=== PATIENT | female | born 1965 | race Native Hawaiian/Other Pacific Islander ===

== ENCOUNTER 2016-07-06 08:41 | Emergency (ER) | payer BC ==
[~2016-07-06] VITALS: Ht 172.7 cm; Wt 58.5 kg
[2016-07-06 10:05] LABS: PLATELET COUNT 257 K/uL (152-353)
[2016-07-06 10:15] LABS: POTASSIUM 3.6 mmol/L (3.6-5.2); SODIUM 133 mmol/L (136-145)
[2016-07-06 10:58] VITALS: BP 147/78; TEMP 98.1
== END 2016-07-06 11:00 | disposition home or self-care (01) ==
LOC: ED 08:41
PROVIDERS: Specialist
DX: N39.0 Urinary tract infection, site not specified (principal); K92.2 Gastrointestinal hemorrhage, unspecified
CPT/HCPCS: 36415; 80053; 81000; 82272; 85027; 87077; 87086; 87088; 87186; 99282

== ENCOUNTER 2016-07-24 08:07 | Day surgery (SDC) | payer BC ==
[~2016-07-24] VITALS: Ht 165.1 cm; Wt 68.0 kg
== END 2016-07-24 12:30 | disposition home or self-care (01) ==
LOC: OR 08:07
PROC: 0DB38ZZ Excision of Lower Esophagus, Via Natural or Artificial Opening Endoscopic (ICD-10-PCS; principal; 2016-07-24)
PROC: 0DB68ZZ Excision of Stomach, Via Natural or Artificial Opening Endoscopic (ICD-10-PCS; 2016-07-24)
PROC: 0DBN8ZZ Excision of Sigmoid Colon, Via Natural or Artificial Opening Endoscopic (ICD-10-PCS; 2016-07-24)
DX: K29.50 Unspecified chronic gastritis without bleeding (principal); K21.0 Gastro-esophageal reflux disease with esophagitis; K52.89 Other specified noninfective gastroenteritis and colitis; D12.5 Benign neoplasm of sigmoid colon; K92.1 Melena; R19.7 Diarrhea, unspecified
CPT/HCPCS: J2001; J2704; J3010

== ENCOUNTER 2017-01-16 08:52 | Outpatient (CLI) | payer BC | END 2017-01-16 09:55 | disposition home or self-care (01) | LOC: US 08:52 | DX: R94.6 Abnormal results of thyroid function studies (principal) ==

== ENCOUNTER 2017-03-07 11:40 | Outpatient (CLI) | payer BC | END 2017-03-07 12:40 | disposition home or self-care (01) | LOC: RAD 11:40 | DX: R06.02 Shortness of breath (principal); R06.2 Wheezing; J40 Bronchitis, not specified as acute or chronic ==

== ENCOUNTER 2017-07-04 22:21 | Emergency (ER) | payer BC ==
[~2017-07-04] VITALS: Ht 172.7 cm; Wt 54.9 kg
[2017-07-05 00:37] VITALS: BP 134/73; TEMP 97.9
== END 2017-07-05 00:43 | disposition home or self-care (01) ==
LOC: ED 22:21
DX: J44.1 Chronic obstructive pulmonary disease with (acute) exacerbation (principal)
CPT/HCPCS: 94664; 99283; J1100

== ENCOUNTER 2018-11-18 11:30 | Outpatient (CLI) | payer BC | END 2018-11-18 20:31 | disposition home or self-care (01) | LOC: RAD 11:30 | DX: J44.9 Chronic obstructive pulmonary disease, unspecified (principal) ==

== ENCOUNTER 2021-09-25 10:37 | Outpatient (CLI) | payer BC ==
[~2021-09-25 10:37] MED LIST: ALPR0.2566 PO; ASPIRIN325 M1 PO; CETI10TA PO; INCRUSE EL62.5 MCG/I INH; MELATONIN3 M1 PO; MONTELUKAST SOD10 MG PO
== END 2021-09-25 19:10 | disposition home or self-care (01) ==
LOC: MAMMO 10:37
PROVIDERS: ATTEND Nurse Practitioner Family
DX: Z12.31 Encounter for screening mammogram for malignant neoplasm of breast (principal)

== ENCOUNTER 2022-03-21 11:00 | Outpatient (CLI) | payer BC | END 2022-03-21 23:24 | disposition home or self-care (01) | LOC: RAD 11:00 | PROVIDERS: ATTEND Nurse Practitioner Family | DX: R06.02 Shortness of breath (principal); R05.1 Acute cough; R06.2 Wheezing; Z87.09 Personal history of other diseases of the respiratory system; F17.200 Nicotine dependence, unspecified, uncomplicated; R05.8 Other specified cough; J20.9 Acute bronchitis, unspecified; Z09 Encounter for follow-up examination after completed treatment for conditions other than malignant neoplasm ==

== ENCOUNTER 2022-05-24 10:23 | Emergency (ER) | payer BC ==
[~2022-05-24] VITALS: Ht 172.7 cm; Wt 64.4 kg
[2022-05-24 10:26] VITALS: BP 133/74; TEMP 98.2
== END 2022-05-24 12:55 | disposition home or self-care (01) ==
LOC: ED 10:23
DX: J44.1 Chronic obstructive pulmonary disease with (acute) exacerbation (principal); J01.80 Other acute sinusitis; F17.210 Nicotine dependence, cigarettes, uncomplicated
CPT/HCPCS: 94664; 96360; 96365; 96375; 99283; 99284; J0456; J0696; J1956; J2920; J2930

== ENCOUNTER 2022-11-15 10:10 | Outpatient (CLI) | payer BC | END 2022-11-15 17:00 | LOC: RAD 10:10 | PROVIDERS: ATTEND Nurse Practitioner Family | DX: R06.2 Wheezing (principal); J40 Bronchitis, not specified as acute or chronic ==

== ENCOUNTER 2023-07-23 12:47 | Emergency (ER) | payer BC ==
[~2023-07-23] VITALS: Ht 172.7 cm; Wt 59.0 kg
[2023-07-23 12:51] VITALS: BP 128/77; TEMP 98.2
[2023-07-23 13:38] LABS: PLATELET COUNT 202 K/uL (152-353)
[2023-07-23 13:43] LABS: POTASSIUM 3.7 mmol/L (3.6-5.2)
[2023-07-23] MEDS ORDERED: BENZONATATE200 MG PO (14:55)
[2023-07-23] MEDS ORDERED: MEDROL DOSEPAK4 MG PO (14:55)
== END 2023-07-23 15:03 | disposition home or self-care (01) ==
LOC: ED 12:47
PROVIDERS: Family Medicine
DX: R06.02 Shortness of breath (principal); J44.1 Chronic obstructive pulmonary disease with (acute) exacerbation; J06.9 Acute upper respiratory infection, unspecified; R05.9 Cough, unspecified; Z86.16 Personal history of COVID-19; F17.210 Nicotine dependence, cigarettes, uncomplicated
CPT/HCPCS: 36415; 80053; 85027; 94664; 99283